=== PATIENT | female | born 1980 | race Caucasian/White ===

== ENCOUNTER 2018-12-29 15:20 | Emergency (ER) | payer BC ==
[2018-12-29] MEDS: IBUPROFEN 600 MG TAB PO (16:19)
== END 2018-12-29 17:06 | disposition home or self-care (01) ==
LOC: FTE 17:06
DX: S80.211A Abrasion, right knee, initial encounter (principal); W01.0XXA Fall on same level from slipping, tripping and stumbling without subsequent striking against object, initial encounter; Y92.9 Unspecified place or not applicable
CPT/HCPCS: 73562; 99283-25